=== PATIENT | male | born 1935 | race Caucasian/White ===

== ENCOUNTER → 2017-02-16 | Outpatient (REF) | payer MEDICARE, OTHER ==
[~2017-02-16] MED LIST: /ESOM40CA; /WARF25TA; ACET65TA; AZOP0.2S OU; CALC1TAB63 PO; COENZYME Q10; COMB0.2S OU; DULCOLAX; ELIQ5TAB PO; EPLE25TA PO; FERR325T69 PO; FLOM5CAP PO; GLIP2.5T2; GLUC500T; GLYB2.5T6; HYDR25TA6; LISI20TA5; MAGN1TAB25 PO; METO1TAB32 PO; OCCUVITE; OMEP40CA2 PO; PERC5TAB8; PRESCAP6 PO; ROSU10TA; ROSU10TA2 PO; SLOWTAB; THERGRAN; TORS20TA2 PO; VITAMIN D50000 UNT; XALA0.007 OU; [UNRECOGNIZED DRUG - OTHER]; xalatan
[2017-02-16 13:28] LABS: MEAN CORPUSCULAR HEMOGLOBIN 34.5 pg (27.0-33.0); MEAN CORPUSCULAR HGB CONC 34.6 g/dl (32.0-36.5); MEAN CORPUSCULAR VOLUME 99.7 fl (80.0-96.0); RED CELL DISTRIBUTION WIDTH 13.8 % (11.5-14.5)
[2017-02-16 14:14] LABS: ALBUMIN 3.8 GM/DL (3.2-5.2); ALBUMIN/GLOBULIN RATIO 1.23 (1.00-1.93); ALKALINE PHOSPHATASE 59 U/L (45-117); ALT/SGPT 32 U/L (12-78); ANION GAP 9 MEQ/L (8-16); AST/SGOT 22 U/L (15-37); BILIRUBIN,TOTAL 0.7 MG/DL (0.2-1.0); BLOOD UREA NITROGEN 20 MG/DL (7-18); CALCIUM LEVEL 8.4 MG/DL (8.8-10.2); CARBON DIOXIDE LEVEL 28 MEQ/L (21-32); CHLORIDE LEVEL 106 MEQ/L (98-107); CHOLESTEROL LEVEL 87 MG/DL (<200); CREATININE FOR GFR 1.23 MG/DL (0.70-1.30); GLOMERULAR FILTRATION RATE > 60.0 (>35); GLUCOSE, FASTING 186 MG/DL (83-110); POTASSIUM SERUM 4.1 MEQ/L (3.5-5.1); SODIUM LEVEL 143 MEQ/L (136-145); TOTAL PROTEIN 6.9 GM/DL (6.4-8.2); TRIGLYCERIDES LEVEL 161 MG/DL (<150)
== END ==
LOC: M LABDRAW1 11:32
PROVIDERS: ATTEND Internal Medicine
DX: Z85.46 Personal history of malignant neoplasm of prostate (principal); I10 Essential (primary) hypertension; E11.9 Type 2 diabetes mellitus without complications; E78.00 Pure hypercholesterolemia, unspecified; E04.1 Nontoxic single thyroid nodule

== ENCOUNTER 2017-05-02 08:01 | Day surgery (SDC) | payer MEDICARE ==
[~2017-05-02] VITALS: Ht 185.4 cm; Wt 104.3 kg
[~2017-05-02 08:01] MED LIST changes: +ACETAMINOPHEN 325 MG TAB PO PRN; +BSS with VANC/TOB/EPI for EYE CASES IR ONE; +CEFUROXIME 1MG/0.1ML INTRACAMERAL INJ As Ordered ONE; +CYCLOPENTOLATE 2% OPHTH SOLN 2ML BTL OD ONE; +HEALON DUET (HEALON 10MG/ML 0.55ML & HEALON ENDOCOAT 30MG/ML 0.85ML) As Ordered ONE; +LIDOCAINE 1% SDV 5 ML VIAL As Ordered ONE; +LIDOCAINE 3.5 % 1ML OPHTH TOPICAL GEL OU ONE; +OFLOXACIN 0.3 % (OCUFLOX) OPTH SOL 5ML OD ONE; +PHENYLEPHRINE 2.5% OPHTH SOL 2ML OD ONE; +POVIDONE-IODINE 5% OPHTH PREP SOL 30ML As Ordered ONE; +PROPARACAINE 0.5% OPHTH SOL 15ML OD PRN; +TROPICAMIDE 1% OPHTH SOLN 2ML OD ONE
[2017-05-02] MEDS ORDERED: LR 500 ML IV ONE (08:15)
[2017-05-02] MEDS ORDERED: LIDOCAINE 1% SDV 5 ML VIAL SC ONE (09:00)
[2017-05-02] MEDS ORDERED: MIDAZOLAM INJ 2 MG/2 ML VIAL (J2250) As Ordered ONE (09:39)
[2017-05-02] MEDS ORDERED: fentaNYL 100 MCG/2 ML INJECTION (J3010) As Ordered ONE (09:40)
[2017-05-02] MEDS ORDERED: HEALON DUET (HEALON 10MG/ML 0.55ML & HEALON ENDOCOAT 30MG/ML 0.85ML) As Ordered ONE (09:41)
[2017-05-02] MEDS ORDERED: ACETYLCHOLINE OPHTH SOLN 1% 2ML (MIOCHOL-E) As Ordered ONE (10:03)
[2017-05-02 10:40] VITALS: BP 155/73
[2017-05-02] MEDS ORDERED: TRIMETHOBENZAMIDE 300 MG CAP PO PRN (10:45)
[2017-05-02] MEDS ORDERED: AcetaZOLAMIDE 500 MG ER CAP PO ONE (10:45)
[2017-05-02] MEDS ORDERED: KETOROLAC 0.5% OPHTH SOLN OD ONE (10:45)
--- NOTE | 2017-05-02 13:42 | RO ---
DATE OF PROCEDURE: 05/02/2017 PREPROCEDURE DIAGNOSIS: Glaucoma, cataract of right eye. POSTPROCEDURE DIAGNOSIS: Glaucoma, cataract of right eye. PROCEDURE: Femtosecond laser and phacoemulsification of the intraocular lens with lens implantation. Intraocular lens power used was 20 Diopters. Endocyclophotocoagulation of the right eye. SURGEON: Meghan Huber MD INDUSTRIAL ORGANIZATIONAL PSYCHOLOGIST: None. ANESTHESIA: COMPLICATIONS: None. DESCRIPTION OF PROCEDURE: The patient was brought to the operating room and laid in supine position. The eye was prepped and draped for ophthalmic surgery and the patient was placed under the femtosecond laser. After proper suction was placed and patient interface was in good position. The ODT images were reviewed. Suction was activated and laser procedure was initiated. Capsulorrhexis lens fragmentation was done, followed by primary and secondary corneal incisions and arcuate corneal incisions. Suction was then placed and the patient was brought to the operating room in supine position. The eye was prepped and sterile fashion for ophthalmic surgery. Speculum was placed. Primary and secondary corneal incisions were opened. EndoCoat was injected into the anterior chamber. The patient's pupil, by this time, had constricted significantly and it was decided to place the Malyugin ring, but prior to that Healon was placed in the ciliary sulcus to elevate the iris from the capsulorrhexis and create a cleavage plane and the Malyugin ring, 7 mm was then placed without any entrapment of the capsule. Following which, phacoemulsification was done in divide and conquer method in the standard fashion and cortical material was then aspirated using an irrigation aspiration cannula. Healon was then placed into the capsular bag. Malyugin ring was then removed. Endocytophotocoagulation was then done with the help of the EndoProbe under the direct visualization on the video screen at 0.25 milliwatts for 280 degrees. At the end of the case, moxifloxacin was injected. Lid speculum was removed. The wound was hydrated. No leaks were noted. The patient was returned to the recovery room in stable condition.
== END 2017-05-02 11:00 | disposition home or self-care (01) ==
LOC: M SDC 08:01
PROVIDERS: ATTEND Ophthalmology
DX: H25.9 Unspecified age-related cataract (principal); H40.9 Unspecified glaucoma; I48.91 Unspecified atrial fibrillation; I10 Essential (primary) hypertension; E11.9 Type 2 diabetes mellitus without complications; Z92.3 Personal history of irradiation; N40.0 Benign prostatic hyperplasia without lower urinary tract symptoms; Z79.02 Long term (current) use of antithrombotics/antiplatelets; Z79.899 Other long term (current) drug therapy
CPT/HCPCS: 66711; 66984; J2250; J3010; V2632

== ENCOUNTER → 2017-06-15 | Outpatient (REF) | payer MEDICARE ==
[~2017-06-15] MED LIST changes: -ACETAMINOPHEN 325 MG TAB PO PRN; -BSS with VANC/TOB/EPI for EYE CASES IR ONE; -CEFUROXIME 1MG/0.1ML INTRACAMERAL INJ As Ordered ONE; -CYCLOPENTOLATE 2% OPHTH SOLN 2ML BTL OD ONE; -HEALON DUET (HEALON 10MG/ML 0.55ML & HEALON ENDOCOAT 30MG/ML 0.85ML) As Ordered ONE; -LIDOCAINE 1% SDV 5 ML VIAL As Ordered ONE; -LIDOCAINE 3.5 % 1ML OPHTH TOPICAL GEL OU ONE; -OFLOXACIN 0.3 % (OCUFLOX) OPTH SOL 5ML OD ONE; -PHENYLEPHRINE 2.5% OPHTH SOL 2ML OD ONE; -POVIDONE-IODINE 5% OPHTH PREP SOL 30ML As Ordered ONE; -PROPARACAINE 0.5% OPHTH SOL 15ML OD PRN; -TROPICAMIDE 1% OPHTH SOLN 2ML OD ONE
== END ==
LOC: M LABDRAW1 10:26
PROVIDERS: ATTEND Urology
DX: Z85.46 Personal history of malignant neoplasm of prostate (principal)

== ENCOUNTER → 2017-08-23 | Outpatient (REF) | payer MEDICARE ==
[2017-08-23 12:23] LABS: HEMATOCRIT 39.9 % (42.0-52.0); HEMOGLOBIN 13.5 g/dl (14.0-18.0); MEAN CORPUSCULAR HEMOGLOBIN 32.8 pg (27.0-33.0); MEAN CORPUSCULAR HGB CONC 33.8 g/dl (32.0-36.5); MEAN CORPUSCULAR VOLUME 97.1 fl (80.0-96.0); PLATELET COUNT, AUTOMATED 159 10^3/uL (150-450); RED BLOOD COUNT 4.11 10^6/uL (4.30-6.10); RED CELL DISTRIBUTION WIDTH 13.2 % (11.5-14.5); WHITE BLOOD COUNT 8.5 10^3/uL (4.0-10.0)
[2017-08-23 12:39] LABS: ALBUMIN 3.9 GM/DL (3.2-5.2); ALBUMIN/GLOBULIN RATIO 1.26 (1.00-1.93); ALKALINE PHOSPHATASE 62 U/L (45-117); ALT/SGPT 24 U/L (12-78); ANION GAP 7 MEQ/L (8-16); AST/SGOT 18 U/L (7-37); BILIRUBIN,TOTAL 0.8 MG/DL (0.2-1.0); BLOOD UREA NITROGEN 18 MG/DL (7-18); CALCIUM LEVEL 8.5 MG/DL (8.8-10.2); CARBON DIOXIDE LEVEL 30 MEQ/L (21-32); CHLORIDE LEVEL 104 MEQ/L (98-107); CHOLESTEROL LEVEL 93 MG/DL (<200); CHOLESTEROL RISK RATIO 2.657 (<5); CREATININE FOR GFR 1.18 MG/DL (0.70-1.30); GLOMERULAR FILTRATION RATE > 60.0 (>35); GLUCOSE, FASTING 212 MG/DL (83-110); HDL CHOLESTEROL 35 MG/DL (>40); LDL CHOLESTEROL 21.6 MG/DL (<100); MAGNESIUM LEVEL 1.9 MG/DL (1.8-2.4); NON-HDL-C 58 MG/DL; SODIUM LEVEL 141 MEQ/L (136-145); TRIGLYCERIDES LEVEL 182 MG/DL (<150)
[2017-08-23 13:07] LABS: CREATININE, URINE 39.1 MG/DL; MALB URINE SIEMENS 21.8 MG/L; MAU/CREAT RATIO 55.7 MCG/MG (0.0-30.0)
[2017-08-23 13:34] LABS: ESTIMATED AVERAGE GLUCOSE 169 MG/DL (60-110); HEMOGLOBIN A1c 7.5 %
== END ==
LOC: M LABDRAW1 10:06
DX: D64.9 Anemia, unspecified (principal); I10 Essential (primary) hypertension; E11.9 Type 2 diabetes mellitus without complications; E78.00 Pure hypercholesterolemia, unspecified
CPT/HCPCS: 83735

== ENCOUNTER 2017-09-25 07:33 | Day surgery (SDC) | payer MEDICARE ==
[2017-09-25] MEDS: BSS with VANC/TOB/EPI for EYE CASES IR (07:00)
[~2017-09-25 07:33] MED LIST changes: -/ESOM40CA; -/WARF25TA; -ACET65TA; +ACETAMINOPHEN 325 MG TAB PO; -AZOP0.2S OU; -CALC1TAB63 PO; -COENZYME Q10; -COMB0.2S OU; +CYCLOPENTOLATE 2% OPHTH SOLN 2ML BTL OS; -DULCOLAX; -ELIQ5TAB PO; -EPLE25TA PO; -FERR325T69 PO; -FLOM5CAP PO; -GLIP2.5T2; -GLUC500T; -GLYB2.5T6; -HYDR25TA6; +LIDOCAINE 3.5 % 1ML OPHTH TOPICAL GEL OU; -LISI20TA5; -MAGN1TAB25 PO; -METO1TAB32 PO; -OCCUVITE; +OFLOXACIN 0.3 % (OCUFLOX) OPTH SOL 5ML OS; -OMEP40CA2 PO; -PERC5TAB8; +PHENYLEPHRINE 2.5% OPHTH SOL 2ML OS; +PHENYLEPHRINE HCL 10 % OPHTH. SOL 5ML OS; -PRESCAP6 PO; +PROPARACAINE 0.5% OPHTH SOL 15ML OS; -ROSU10TA; -ROSU10TA2 PO; -SLOWTAB; -THERGRAN; -TORS20TA2 PO; +TROPICAMIDE 1% OPHTH SOLN 2ML OS; -VITAMIN D50000 UNT; -XALA0.007 OU; -[UNRECOGNIZED DRUG - OTHER]; -xalatan
[2017-09-25] MEDS ORDERED: fentaNYL 100 MCG/2 ML INJECTION (J3010) As Ordered (08:11)
[2017-09-25] MEDS ORDERED: MIDAZOLAM INJ 2 MG/2 ML VIAL (J2250) As Ordered (08:11)
[2017-09-25 08:35] LABS: BEDSIDE GLUCOSE 220 MG/DL (83-110)
[2017-09-25] MEDS: HEALON DUET (HEALON 10MG/ML 0.55ML & HEALON ENDOCOAT 30MG/ML 0.85ML) As Ordered (08:48)
[2017-09-25] MEDS: LIDOCAINE 1% SDV 5 ML VIAL As Ordered (08:48)
[2017-09-25] MEDS: POVIDONE-IODINE 5% OPHTH PREP SOL 30ML As Ordered (08:48)
[2017-09-25] MEDS: CEFUROXIME 1MG/0.1ML INTRACAMERAL INJ As Ordered (08:48)
[2017-09-25] MEDS: AcetaZOLAMIDE 500 MG ER CAP PO (09:30)
[2017-09-25] MEDS: KETOROLAC 0.5% OPHTH SOLN OS (09:30)
[2017-09-25] MEDS ORDERED: TRIMETHOBENZAMIDE 300 MG CAP PO (09:30)
== END 2017-09-25 09:53 | disposition home or self-care (01) ==
LOC: M SDC 07:33
DX: H25.12 Age-related nuclear cataract, left eye (principal); H57.03 Miosis; H40.9 Unspecified glaucoma; I48.91 Unspecified atrial fibrillation; I50.42 Chronic combined systolic (congestive) and diastolic (congestive) heart failure; I11.0 Hypertensive heart disease with heart failure; E78.00 Pure hypercholesterolemia, unspecified; E11.9 Type 2 diabetes mellitus without complications; Z87.891 Personal history of nicotine dependence; Z96.652 Presence of left artificial knee joint; Z72.3 Lack of physical exercise; Z85.51 Personal history of malignant neoplasm of bladder; N40.0 Benign prostatic hyperplasia without lower urinary tract symptoms; Z79.899 Other long term (current) drug therapy; Z85.46 Personal history of malignant neoplasm of prostate; Z86.010 Personal history of colon polyps; M19.90 Unspecified osteoarthritis, unspecified site; D64.9 Anemia, unspecified
CPT/HCPCS: 66982

== ENCOUNTER → 2018-05-14 | Outpatient (REF) | payer MEDICARE ==
[2018-05-14 15:49] LABS: APPEARANCE, URINE CLEAR (CLEAR); BACTERIA, URINE AUTO NEGATIVE (NEGATIVE); BILIRUBIN, URINE AUTO NEGATIVE (NEGATIVE); BLOOD, URINE BLOOD NEGATIVE (NEGATIVE); COLOR, URINE YELLOW (YELLOW); GLUCOSE, URINE (UA) AUTO 1+ mg/dL (NEGATIVE); KETONE, URINE AUTO NEGATIVE (NEGATIVE); LEUKOCYTE ESTERASE, URINE AUTO NEGATIVE (NEGATIVE); MUCUS, URINE SMALL (NEGATIVE); NITRITE, URINE AUTO NEGATIVE (NEGATIVE); PROTEIN, URINE AUTO NEGATIVE (NEGATIVE); RBC, URINE AUTO 0 /HPF (0-3); SPECIFIC GRAVITY URINE AUTO 1.013 (1.002-1.035); SQUAMOUS EPITHELIAL CELL UR AU 0 /HPF (0-6); UROBILINOGEN, URINE AUTO 0.2 mg/dL (0.0-2.0); WBC, URINE AUTO 0 /HPF (0-3)
[2018-05-14 16:03] LABS: ESTIMATED AVERAGE GLUCOSE 157 MG/DL (60-110); HEMOGLOBIN A1c 7.1 %
[2018-05-14 16:10] LABS: CREATININE, URINE 93.3 MG/DL; MALB URINE SIEMENS 26.4 MG/L
[2018-05-14 16:23] LABS: MAU/CREAT RATIO 28.3 MCG/MG (0.0-30.0)
[2018-05-14 16:34] LABS: ALBUMIN/GLOBULIN RATIO 1.25 (1.00-1.93); ALKALINE PHOSPHATASE 67 U/L (45-117); ALT/SGPT 21 U/L (12-78); ANION GAP 10 MEQ/L (8-16); AST/SGOT 18 U/L (7-37); BILIRUBIN,TOTAL 0.8 MG/DL (0.2-1.0); BLOOD UREA NITROGEN 20 MG/DL (7-18); CALCIUM LEVEL 8.8 MG/DL (8.8-10.2); CARBON DIOXIDE LEVEL 27 MEQ/L (21-32); CHLORIDE LEVEL 105 MEQ/L (98-107); CREATININE FOR GFR 1.16 MG/DL (0.70-1.30); GLOMERULAR FILTRATION RATE > 60.0 (>35); GLUCOSE, FASTING 101 MG/DL (70-100); MAGNESIUM LEVEL 2.3 MG/DL (1.8-2.4); POTASSIUM SERUM 4.6 MEQ/L (3.5-5.1); SODIUM LEVEL 142 MEQ/L (136-145); TOTAL PROTEIN 7.2 GM/DL (6.4-8.2)
== END ==
LOC: M LABDRAW1 11:51
DX: I10 Essential (primary) hypertension (principal); E11.9 Type 2 diabetes mellitus without complications; Z51.81 Encounter for therapeutic drug level monitoring; Z79.01 Long term (current) use of anticoagulants
CPT/HCPCS: 83735

== ENCOUNTER → 2018-05-14 | Outpatient (REF) | payer MEDICARE ==
[2018-05-14 15:51] LABS: INR 1.17; PROTHROMBIN TIME 15.1 SECONDS (12.1-14.4)
== END ==
LOC: M LABDRAW1 11:54
DX: Z51.81 Encounter for therapeutic drug level monitoring (principal); Z79.01 Long term (current) use of anticoagulants

== ENCOUNTER → 2018-06-07 | Outpatient (REF) | payer MEDICARE, OTHER ==
[2018-06-07 16:16] LABS: PROSTATIC SPECIFIC AG MONITOR 0.09 NG/ML (< 4.0)
== END ==
LOC: M LABDRAW1 15:46
DX: Z12.5 Encounter for screening for malignant neoplasm of prostate (principal)
CPT/HCPCS: 84153

== ENCOUNTER → 2018-12-30 | Outpatient (REF) | payer MEDICARE, OTHER ==
[~2018-12-30] MED LIST changes: +ACET65TA; -ACETAMINOPHEN 325 MG TAB PO; +AZOP0.2S OU; +CALC1TAB63 PO; +COENZYME Q10; +COMB0.2S OU; +COUM1TAB18; +CRES10TA32; -CYCLOPENTOLATE 2% OPHTH SOLN 2ML BTL OS; +DULCOLAX; +ELIQ5TAB PO; +EPLE25TA PO; +FERR325T69 PO; +FLOM0.4C39 PO; +GLIP2.5T2; +GLUC500T; +GLYB2.5T6; +HYDR25TA6; -LIDOCAINE 3.5 % 1ML OPHTH TOPICAL GEL OU; +LISI20TA5; +MAGN1TAB26 PO; +METO1TAB32 PO; +NEXI1CAP3; +OCCUVITE; -OFLOXACIN 0.3 % (OCUFLOX) OPTH SOL 5ML OS; +OMEP40CA2 PO; +PERC5TAB8; -PHENYLEPHRINE 2.5% OPHTH SOL 2ML OS; -PHENYLEPHRINE HCL 10 % OPHTH. SOL 5ML OS; +PRESCAP6 PO; -PROPARACAINE 0.5% OPHTH SOL 15ML OS; +ROSU10TA5 PO; +SLOWTAB; +THERGRAN; +TORS20TA2 PO; -TROPICAMIDE 1% OPHTH SOLN 2ML OS; +VITAMIN D50000 UNT; +XALA0.007 OU; +[UNRECOGNIZED DRUG - OTHER]; +xalatan
[2018-12-30 12:18] LABS: HEMOGLOBIN 13.7 g/dl (13.5-17.5); MEAN CORPUSCULAR HEMOGLOBIN 33.2 pg (27.0-33.0); MEAN CORPUSCULAR HGB CONC 33.4 g/dl (32.0-36.5); MEAN CORPUSCULAR VOLUME 99.3 fl (80.0-96.0); PLATELET COUNT, AUTOMATED 139 10^3/uL (150-450); RED BLOOD COUNT 4.13 10^6/uL (4.30-6.10); WHITE BLOOD COUNT 5.6 10^3/uL (4.0-10.0)
[2018-12-30 12:46] LABS: HEMOGLOBIN A1c 7.6 %
[2018-12-30 12:49] LABS: ALBUMIN 3.7 GM/DL (3.2-5.2); BILIRUBIN,TOTAL 0.9 MG/DL (0.2-1.0); CALCIUM LEVEL 8.6 MG/DL (8.8-10.2); CHOLESTEROL RISK RATIO 2.781 (<5); CREATININE FOR GFR 1.32 MG/DL (0.70-1.30); FREE T4 1.25 NG/DL (0.76-1.46); GLOMERULAR FILTRATION RATE 55.1 (>35); MAGNESIUM LEVEL 2.2 MG/DL (1.8-2.4); POTASSIUM SERUM 4.3 MEQ/L (3.5-5.1); THYROID STIMULATING HORMONE 0.708 uIU/ML (0.358-3.740); TOTAL PROTEIN 7.2 GM/DL (6.4-8.2)
[2018-12-30 13:05] LABS: CREATININE, URINE 23.3 MG/DL; MALB URINE SIEMENS 6.3 MG/L
== END ==
LOC: M LABDRAW1 11:32
PROVIDERS: ATTEND Internal Medicine
DX: I11.9 Hypertensive heart disease without heart failure (principal); Z85.46 Personal history of malignant neoplasm of prostate; E04.1 Nontoxic single thyroid nodule; E11.9 Type 2 diabetes mellitus without complications; E78.00 Pure hypercholesterolemia, unspecified

== ENCOUNTER → 2019-06-27 | Outpatient (REF) | payer MEDICARE, OTHER ==
[~2019-06-27] MED LIST changes: -OMEP40CA2 PO; +OMEP40CA97 PO; -ROSU10TA5 PO; +ROSU10TA6 PO
== END ==
LOC: M LABDRAW1 15:28
PROVIDERS: ATTEND Urology
DX: Z85.46 Personal history of malignant neoplasm of prostate (principal)

== ENCOUNTER → 2019-11-24 | Outpatient (REF) | payer MEDICARE, OTHER ==
[2019-11-24 11:03] LABS: CREATININE, URINE 68.3 MG/DL; MAU/CREAT RATIO 405.5 MCG/MG (0.0-30.0)
[2019-11-24 11:04] LABS: ALT/SGPT 22 U/L (12-78); BILIRUBIN,TOTAL 1.1 MG/DL (0.2-1.0); BLOOD UREA NITROGEN 27 MG/DL (7-18); CALCIUM LEVEL 9.4 MG/DL (8.8-10.2); CARBON DIOXIDE LEVEL 31 MEQ/L (21-32); CHLORIDE LEVEL 92 MEQ/L (98-107); CHOLESTEROL LEVEL 96 MG/DL (<200); CHOLESTEROL RISK RATIO 2.909 (<5); GLOMERULAR FILTRATION RATE 34.1 (>35); GLUCOSE, FASTING 473 MG/DL (70-100); HDL CHOLESTEROL 33 MG/DL (>40); MAGNESIUM LEVEL 2.8 MG/DL (1.8-2.4); NON-HDL-C 63 MG/DL; POTASSIUM SERUM 4.4 MEQ/L (3.5-5.1); SODIUM LEVEL 129 MEQ/L (136-145); TOTAL PROTEIN 7.5 GM/DL (6.4-8.2); TRIGLYCERIDES LEVEL 338 MG/DL (<150)
[2019-11-24 11:07] LABS: HEMOGLOBIN A1c 11.7 %
== END ==
LOC: M LABDRAW1 08:07
PROVIDERS: ATTEND Internal Medicine
DX: I11.9 Hypertensive heart disease without heart failure (principal); E78.2 Mixed hyperlipidemia; E11.9 Type 2 diabetes mellitus without complications

== ENCOUNTER → 2020-01-23 | Outpatient (CLI) | payer MEDICARE, OTHER, BC ==
[2020-01-23 14:33] LABS: BLOOD UREA NITROGEN 16 MG/DL (7-18); CALCIUM LEVEL 8.5 MG/DL (8.8-10.2); CARBON DIOXIDE LEVEL 28 MEQ/L (21-32); CHLORIDE LEVEL 107 MEQ/L (98-107); CREATININE FOR GFR 1.15 MG/DL (0.70-1.30); GLOMERULAR FILTRATION RATE > 60.0 (>35); GLUCOSE, FASTING 96 MG/DL (70-100); POTASSIUM SERUM 4.4 MEQ/L (3.5-5.1); SODIUM LEVEL 142 MEQ/L (136-145)
== END ==
LOC: M PLALAB 10:27
PROVIDERS: ATTEND Internal Medicine Cardiovascular Disease
DX: E87.1 Hypo-osmolality and hyponatremia (principal)

== ENCOUNTER → 2020-03-31 | Outpatient (REF) | payer MEDICARE, BC ==
[2020-05-03 11:38] LABS: HEMATOCRIT 43.8 % (42.0-52.0); HEMOGLOBIN 14.6 g/dl (13.5-17.5); MEAN CORPUSCULAR HEMOGLOBIN 33.6 pg (27.0-33.0); MEAN CORPUSCULAR HGB CONC 33.3 g/dl (32.0-36.5); MEAN CORPUSCULAR VOLUME 100.7 fl (80.0-96.0); PLATELET COUNT, AUTOMATED 155 10^3/uL (150-450); RED BLOOD COUNT 4.35 10^6/uL (4.30-6.10); WHITE BLOOD COUNT 6.8 10^3/uL (4.0-10.0)
[2020-05-16 10:56] LABS: ALBUMIN 3.9 GM/DL (3.2-5.2); BILIRUBIN,TOTAL 0.8 MG/DL (0.2-1.0); CALCIUM LEVEL 8.4 MG/DL (8.8-10.2); CHOLESTEROL RISK RATIO 2.806 (<5); CREATININE FOR GFR 1.54 MG/DL (0.70-1.30); HEMOGLOBIN A1c 6.8 %; MAGNESIUM LEVEL 2.4 MG/DL (1.8-2.4); POTASSIUM SERUM 4.1 MEQ/L (3.5-5.1); TOTAL PROTEIN 7.3 GM/DL (6.4-8.2)
== END ==
LOC: M SFHCPLAZ 11:13
PROVIDERS: ATTEND Internal Medicine
DX: E11.9 Type 2 diabetes mellitus without complications (principal); I11.9 Hypertensive heart disease without heart failure; E78.2 Mixed hyperlipidemia; N18.3 Chronic kidney disease, stage 3 (moderate)

== ENCOUNTER → 2020-05-28 | Outpatient (CLI) | payer MEDICARE, OTHER, BC ==
[2020-05-28 10:52] LABS: CALCIUM LEVEL 8.6 MG/DL (8.8-10.2); CREATININE FOR GFR 1.42 MG/DL (0.70-1.30); GLOMERULAR FILTRATION RATE 50.6 (>35); POTASSIUM SERUM 3.7 MEQ/L (3.5-5.1)
== END ==
LOC: M PLALAB 08:04
PROVIDERS: ATTEND Internal Medicine Cardiovascular Disease
DX: I50.32 Chronic diastolic (congestive) heart failure (principal); Z79.01 Long term (current) use of anticoagulants

== ENCOUNTER → 2020-06-28 | Outpatient (CLI) | payer MEDICARE, OTHER, BC | LOC: M PLALAB 11:54 | PROVIDERS: ATTEND Urology | DX: Z85.46 Personal history of malignant neoplasm of prostate (principal) ==

== ENCOUNTER → 2020-08-19 | Outpatient (CLI) | payer BC, MEDICARE, OTHER | LOC: M LABSMTC 09:53 | PROVIDERS: ATTEND Family Medicine | DX: Z20.828 Contact with and (suspected) exposure to other viral communicable diseases (principal) ==

== ENCOUNTER → 2020-09-03 | Outpatient (REF) | payer MEDICARE, BC ==
[2020-09-03 11:01] LABS: BASO % 0.3 % (0.0-1.0); EOS % 0.5 % (0.0-3.0); HEMATOCRIT 47.1 % (42.0-52.0); HEMOGLOBIN 15.4 g/dl (13.5-17.5); LYMPH # 1.5 10^3/uL (1.5-5.0); LYMPH % 26.4 % (24.0-44.0); MEAN CORPUSCULAR HGB CONC 32.7 g/dl (32.0-36.5); MEAN CORPUSCULAR VOLUME 100.9 fl (80.0-96.0); MONO # 0.6 10^3/uL (0.0-0.8); NEUTROPHILS # 3.5 10^3/uL (1.5-8.5); NEUTROPHILS % 61.6 % (36.0-66.0); PLATELET COUNT, AUTOMATED 154 10^3/uL (150-450); RED BLOOD COUNT 4.67 10^6/uL (4.30-6.10); WHITE BLOOD COUNT 5.7 10^3/uL (4.0-10.0)
[2020-09-03 11:47] LABS: ALBUMIN 3.7 GM/DL (3.2-5.2); ALT/SGPT 28 U/L (12-78); BILIRUBIN,TOTAL 0.9 MG/DL (0.2-1.0); BLOOD UREA NITROGEN 25 MG/DL (7-18); CALCIUM LEVEL 8.6 MG/DL (8.8-10.2); CARBON DIOXIDE LEVEL 29 MEQ/L (21-32); CHLORIDE LEVEL 102 MEQ/L (98-107); CHOLESTEROL LEVEL 82 MG/DL (<200); CHOLESTEROL RISK RATIO 2.484 (<5); CREATININE FOR GFR 1.64 MG/DL (0.70-1.30); GLOMERULAR FILTRATION RATE 42.7 (>35); GLUCOSE, FASTING 230 MG/DL (70-100); HDL CHOLESTEROL 33 MG/DL (>40); LDL CHOLESTEROL 24 MG/DL (<100); MAGNESIUM LEVEL 2.4 MG/DL (1.8-2.4); NON-HDL-C 49 MG/DL; POTASSIUM SERUM 4.8 MEQ/L (3.5-5.1); SODIUM LEVEL 138 MEQ/L (136-145); THYROID STIMULATING HORMONE 0.554 uIU/ML (0.358-3.740); TOTAL PROTEIN 6.8 GM/DL (6.4-8.2); TRIGLYCERIDES LEVEL 123 MG/DL (<150)
[2020-09-03 11:50] LABS: CREATININE, URINE 20.2 MG/DL; MALB URINE SIEMENS < 5.0 MG/L; MAU/CREAT RATIO 24.7 MCG/MG (0.0-30.0)
[2020-09-03 11:55] LABS: PTH INTACT 178.5 PG/ML (18.5-88.0)
== END ==
LOC: M PLALAB 08:07
PROVIDERS: ATTEND Internal Medicine
DX: N18.30 Chronic kidney disease, stage 3 unspecified (principal); I11.9 Hypertensive heart disease without heart failure; E11.9 Type 2 diabetes mellitus without complications; E78.2 Mixed hyperlipidemia; E04.1 Nontoxic single thyroid nodule; Z11.59 Encounter for screening for other viral diseases
CPT/HCPCS: 36415; 80053; 80061; 82043; 83036; 83735; 83970; 84443; 85025; G0472

== ENCOUNTER → 2021-02-11 | Outpatient (REF) | payer MEDICARE, BC ==
[~2021-02-11] MED LIST changes: +OMEP40CA4 PO; -OMEP40CA97 PO
[2021-02-11 10:52] LABS: BASO % 0.3 % (0.0-1.0); EOS % 0.7 % (0.0-3.0); HEMATOCRIT 46.4 % (42.0-52.0); HEMOGLOBIN 15.3 g/dl (13.5-17.5); LYMPH # 1.4 10^3/uL (1.5-5.0); LYMPH % 23.7 % (24.0-44.0); MEAN CORPUSCULAR HEMOGLOBIN 32.9 pg (27.0-33.0); MEAN CORPUSCULAR VOLUME 99.8 fl (80.0-96.0); MONO # 0.6 10^3/uL (0.0-0.8); MONO % 9.9 % (2.0-8.0); NEUTROPHILS # 3.9 10^3/uL (1.5-8.5); NEUTROPHILS % 65.2 % (36.0-66.0); PLATELET COUNT, AUTOMATED 123 10^3/uL (150-450); RED BLOOD COUNT 4.65 10^6/uL (4.30-6.10); WHITE BLOOD COUNT 5.9 10^3/uL (4.0-10.0)
[2021-02-11 11:17] LABS: ALBUMIN 3.6 GM/DL (3.2-5.2); BILIRUBIN,TOTAL 0.9 MG/DL (0.2-1.0); CALCIUM LEVEL 8.4 MG/DL (8.8-10.2); CREATININE FOR GFR 1.41 MG/DL (0.70-1.30); GLOMERULAR FILTRATION RATE 50.9 (>35); MAGNESIUM LEVEL 2.5 MG/DL (1.8-2.4); TOTAL PROTEIN 6.8 GM/DL (6.4-8.2)
[2021-02-11 11:23] LABS: PTH INTACT 150.9 PG/ML (18.5-88.0)
[2021-02-11 11:46] LABS: HEMOGLOBIN A1c 7.3 %
[2021-02-15 10:39] LABS: PROSTATIC SPECIFIC AG MONITOR 0.05 NG/ML (< 4.00)
== END ==
LOC: M SFHCPLAZ 07:52
PROVIDERS: ATTEND Internal Medicine
DX: I11.9 Hypertensive heart disease without heart failure (principal); E11.9 Type 2 diabetes mellitus without complications; D64.9 Anemia, unspecified; N18.32 Chronic kidney disease, stage 3b; Z85.46 Personal history of malignant neoplasm of prostate

== ENCOUNTER → 2021-07-01 | Outpatient (CLI) | payer MEDICARE, BC | LOC: M PLALAB 13:57 | PROVIDERS: ATTEND Urology | DX: Z85.46 Personal history of malignant neoplasm of prostate (principal) | CPT/HCPCS: 36415; G0103 ==

== ENCOUNTER → 2021-07-01 | Outpatient (CLI) | payer MEDICARE, BC ==
[2021-07-01 16:00] LABS: BASO % 0.4 % (0.0-1.0); EOS # 0.1 10^3/uL (0.0-0.5); EOS % 0.9 % (0.0-3.0); HEMATOCRIT 45.9 % (42.0-52.0); HEMOGLOBIN 15.4 g/dl (13.5-17.5); LYMPH # 1.8 10^3/uL (1.5-5.0); LYMPH % 26.5 % (24.0-44.0); MEAN CORPUSCULAR HEMOGLOBIN 33.7 pg (27.0-33.0); MEAN CORPUSCULAR HGB CONC 33.6 g/dl (32.0-36.5); MEAN CORPUSCULAR VOLUME 100.4 fl (80.0-96.0); MONO # 0.8 10^3/uL (0.0-0.8); MONO % 11.3 % (2.0-8.0); NEUTROPHILS # 4.1 10^3/uL (1.5-8.5); NEUTROPHILS % 60.6 % (36.0-66.0); PLATELET COUNT, AUTOMATED 147 10^3/uL (150-450); RED BLOOD COUNT 4.57 10^6/uL (4.30-6.10); WHITE BLOOD COUNT 6.8 10^3/uL (4.0-10.0)
[2021-07-01 16:24] LABS: ALBUMIN 3.6 GM/DL (3.2-5.2); CALCIUM LEVEL 8.6 MG/DL (8.8-10.2); CHOLESTEROL RISK RATIO 2.5 (<5); CREATININE FOR GFR 1.52 MG/DL (0.70-1.30); GLOMERULAR FILTRATION RATE 46.5 (>35); MAGNESIUM LEVEL 2.6 MG/DL (1.8-2.4); POTASSIUM SERUM 4.4 MEQ/L (3.5-5.1); PROSTATIC SPECIFIC AG MONITOR 0.05 NG/ML (< 4.00); TOTAL PROTEIN 6.9 GM/DL (6.4-8.2)
[2021-07-01 16:32] LABS: CREATININE, URINE 41.8 MG/DL; MALB URINE SIEMENS 16.4 MG/L; MAU/CREAT RATIO 39.2 MCG/MG (0.0-30.0)
[2021-07-01 16:34] LABS: PTH INTACT 140.8 PG/ML (18.5-88.0)
== END ==
LOC: M PLALAB 14:00
PROVIDERS: ATTEND Internal Medicine
DX: Z85.46 Personal history of malignant neoplasm of prostate (principal); I13.0 Hypertensive heart and chronic kidney disease with heart failure and stage 1 through stage 4 chronic kidney disease, or unspecified chronic kidney disease; I50.9 Heart failure, unspecified; N18.32 Chronic kidney disease, stage 3b; E11.9 Type 2 diabetes mellitus without complications; E78.2 Mixed hyperlipidemia; K21.9 Gastro-esophageal reflux disease without esophagitis
CPT/HCPCS: 36415; 80053; 80061; 82043; 83735; 83970; 84153; 85025; G0103

== ENCOUNTER → 2021-07-18 | Outpatient (REF) | payer MEDICARE, BC | LOC: M SFHCPLAZ 15:10 | PROVIDERS: ATTEND Internal Medicine | DX: E11.9 Type 2 diabetes mellitus without complications (principal) ==

== ENCOUNTER → 2021-07-18 | Outpatient (CLI) | payer MEDICARE, BC ==
[2021-07-18 18:06] LABS: HEMOGLOBIN A1c 6.8 %
== END ==
LOC: M PLALAB 15:31
PROVIDERS: ATTEND Internal Medicine
DX: E11.9 Type 2 diabetes mellitus without complications (principal)
CPT/HCPCS: 36415; 83036; 90682; G0008; G0463

== ENCOUNTER → 2021-12-29 | Outpatient (CLI) | payer BC, MEDICARE ==
[2021-12-29 13:36] LABS: BASO % 0.4 % (0.0-1.0); EOS % 0.5 % (0.0-3.0); HEMATOCRIT 45.4 % (42.0-52.0); HEMOGLOBIN 15.4 g/dl (13.5-17.5); LYMPH # 1.7 10^3/uL (1.5-5.0); LYMPH % 21.6 % (24.0-44.0); MEAN CORPUSCULAR HEMOGLOBIN 34.1 pg (27.0-33.0); MEAN CORPUSCULAR HGB CONC 33.9 g/dl (32.0-36.5); MEAN CORPUSCULAR VOLUME 100.4 fl (80.0-96.0); MONO # 0.7 10^3/uL (0.0-0.8); MONO % 9.3 % (2.0-8.0); NEUTROPHILS # 5.2 10^3/uL (1.5-8.5); NEUTROPHILS % 67.8 % (36.0-66.0); PLATELET COUNT, AUTOMATED 158 10^3/uL (150-450); RED BLOOD COUNT 4.52 10^6/uL (4.30-6.10); WHITE BLOOD COUNT 7.7 10^3/uL (4.0-10.0)
[2021-12-29 13:52] LABS: HEMOGLOBIN A1c 6.9 %
[2021-12-29 14:10] LABS: ALBUMIN 3.6 GM/DL (3.2-5.2); BILIRUBIN,TOTAL 0.7 MG/DL (0.2-1.0); CALCIUM LEVEL 8.5 MG/DL (8.8-10.2); CHOLESTEROL RISK RATIO 2.8 (<5); CREATININE FOR GFR 1.43 MG/DL (0.70-1.30); CREATININE, URINE 42.6 MG/DL; GLOMERULAR FILTRATION RATE 49.9 (>35); MALB URINE SIEMENS 6.7 MG/L; MAU/CREAT RATIO 15.7 MCG/MG (0.0-30.0); POTASSIUM SERUM 4.5 MEQ/L (3.5-5.1); PTH INTACT 120.1 PG/ML (18.5-88.0); TOTAL PROTEIN 6.9 GM/DL (6.4-8.2)
== END ==
LOC: M PLALAB 09:27
PROVIDERS: ATTEND Internal Medicine
DX: I11.9 Hypertensive heart disease without heart failure (principal); E11.9 Type 2 diabetes mellitus without complications; N18.32 Chronic kidney disease, stage 3b; E78.2 Mixed hyperlipidemia; Z85.46 Personal history of malignant neoplasm of prostate

== ENCOUNTER → 2022-07-05 | Outpatient (CLI) | payer MEDICARE, BC ==
[~2022-07-05] MED LIST changes: +ASPI-551 PO; +FARX1TAB3 PO; +LANTINJ4 SQ; +METF-838 PO
[2022-07-05 10:19] LABS: HEMATOCRIT 43.4 % (42.0-52.0); HEMOGLOBIN 14.1 g/dl (13.5-17.5); MEAN CORPUSCULAR HEMOGLOBIN 33.1 pg (27.0-33.0); MEAN CORPUSCULAR HGB CONC 32.5 g/dl (32.0-36.5); MEAN CORPUSCULAR VOLUME 101.9 fl (80.0-96.0); PLATELET COUNT, AUTOMATED 127 10^3/uL (150-450); RED BLOOD COUNT 4.26 10^6/uL (4.30-6.10); WHITE BLOOD COUNT 7.7 10^3/uL (4.0-10.0)
[2022-07-05 11:18] LABS: ALBUMIN 3.6 G/DL (3.2-5.2); BILIRUBIN,TOTAL 1.8 MG/DL (0.3-1.2); C REACTIVE PROTEIN QUANTITATIV 1.2 MG/DL (<1.0); CALCIUM LEVEL 8.3 MG/DL (8.3-10.6); CHOLESTEROL RISK RATIO 2.75 (<5); CREATININE FOR GFR 1.41 MG/DL (0.70-1.30); FREE T4 1.37 NG/DL (0.89-1.76); GLOMERULAR FILTRATION RATE 50.6 (>35); HDL CHOLESTEROL 24.7 MG/DL (>40); LDL CHOLESTEROL 24.1 MG/DL (<100); PROSTATIC SPECIFIC AG MONITOR 0.05 NG/ML (< 4.00); THYROID STIMULATING HORMONE 1.084 uIU/ML (0.55-4.78); TOTAL 25(OH) VITAMIN D 35.6 NG/ML (20.0-100.0); TOTAL PROTEIN 6.5 G/DL (5.7-8.2)
[2022-07-05 12:32] LABS: HEMOGLOBIN A1c 6.8 % (4.0-6.0)
== END ==
LOC: M PLALAB 07:38
PROVIDERS: ATTEND Internal Medicine Hematology
DX: E78.2 Mixed hyperlipidemia (principal); Z85.46 Personal history of malignant neoplasm of prostate; Z79.899 Other long term (current) drug therapy

== ENCOUNTER → 2022-07-18 | Outpatient (CLI) | payer MEDICARE, BC ==
[2022-07-18 15:30] LABS: PROSTATIC SPECIFIC AG MONITOR 0.05 NG/ML (< 4.00)
[2022-07-18 15:32] LABS: BILIRUBIN,DIRECT 0.7 MG/DL (<0.4)
[2022-07-18 15:33] LABS: BILIRUBIN,TOTAL 1.6 MG/DL (0.3-1.2)
== END ==
LOC: M PLALAB 11:24
PROVIDERS: ATTEND Internal Medicine Hematology
DX: E80.6 Other disorders of bilirubin metabolism (principal); R97.20 Elevated prostate specific antigen [PSA]

== ENCOUNTER → 2022-08-21 | Outpatient (CLI) | payer MEDICARE, BC ==
[~2022-08-21] MED LIST changes: +TORS20TA2
== END ==
LOC: M LABSMTC 10:32
PROVIDERS: ATTEND Anesthesiology
DX: Z01.818 Encounter for other preprocedural examination (principal)

== ENCOUNTER 2022-08-25 11:49 | Day surgery (SDC) | payer MEDICARE, BC ==
[~2022-08-25] VITALS: Ht 185.4 cm; Wt 98.3 kg
[2022-08-25] MEDS ORDERED: propofoL 200 MG/20 ML VIAL As Ordered ONE (12:38)
[2022-08-25] MEDS ORDERED: LIDOCAINE 2% 100MG/5ML SDV (FOR ANES.) As Ordered ONE (12:38)
[2022-08-25] MEDS ORDERED: CETACAINE SPRAY 5GM As Ordered ONE (14:37)
[2022-08-25] MEDS ORDERED: MIDAZOLAM INJ 2MG/2ML VIAL As Ordered ONE (14:45)
[2022-08-25] MEDS ORDERED: ONDANSETRON 4MG 2ML VIAL As Ordered ONE (15:02)
[2022-08-25 15:50] VITALS: BP 132/68
== END 2022-08-25 16:02 | disposition home or self-care (01) ==
LOC: M OPP 11:49
PROVIDERS: ATTEND Internal Medicine Cardiovascular Disease
DX: Z95.818 Presence of other cardiac implants and grafts (principal); I48.21 Permanent atrial fibrillation; I10 Essential (primary) hypertension; E78.5 Hyperlipidemia, unspecified; E11.9 Type 2 diabetes mellitus without complications; K21.9 Gastro-esophageal reflux disease without esophagitis; M19.90 Unspecified osteoarthritis, unspecified site; Z85.46 Personal history of malignant neoplasm of prostate; Z92.3 Personal history of irradiation; Z86.73 Personal history of transient ischemic attack (TIA), and cerebral infarction without residual deficits; Z96.652 Presence of left artificial knee joint; Z79.01 Long term (current) use of anticoagulants; Z79.4 Long term (current) use of insulin; Z79.82 Long term (current) use of aspirin; Z79.84 Long term (current) use of oral hypoglycemic drugs; Z79.899 Other long term (current) drug therapy
CPT/HCPCS: 93312; 93320; 93325; J2250; J2405

== ENCOUNTER → 2023-01-23 | Outpatient (CLI) | payer MEDICARE, BC ==
[2023-01-23 11:07] LABS: ALBUMIN 3.8 G/DL (3.2-5.2); CALCIUM LEVEL 8.8 MG/DL (8.3-10.6); CREATININE FOR GFR 1.32 MG/DL (0.70-1.30); GLOMERULAR FILTRATION RATE 54.6 (>35); PHOSPHORUS LEVEL 4.6 MG/DL (2.4-5.1); POTASSIUM SERUM 3.5 MMOL/L (3.5-5.1)
== END ==
LOC: M PLALAB 08:30
PROVIDERS: ATTEND Internal Medicine Cardiovascular Disease
DX: I50.32 Chronic diastolic (congestive) heart failure (principal)

== ENCOUNTER → 2023-01-23 | Outpatient (CLI) | payer MEDICARE, BC ==
[2023-01-23 11:07] LABS: C REACTIVE PROTEIN QUANTITATIV < 0.40 MG/DL (<1.0)
[2023-01-23 11:08] LABS: HEMATOCRIT 45.8 % (42.0-52.0); HEMOGLOBIN 15.2 g/dl (13.5-17.5); MEAN CORPUSCULAR HEMOGLOBIN 32.9 pg (27.0-33.0); MEAN CORPUSCULAR HGB CONC 33.2 g/dl (32.0-36.5); MEAN CORPUSCULAR VOLUME 99.1 fl (80.0-96.0); PLATELET COUNT, AUTOMATED 130 10^3/uL (150-450); RED BLOOD COUNT 4.62 10^6/uL (4.30-6.10); WHITE BLOOD COUNT 6.1 10^3/uL (4.0-10.0)
[2023-01-23 11:09] LABS: ALBUMIN 3.8 G/DL (3.2-5.2); ALKALINE PHOSPHATASE 82 U/L (46-116); ALT/SGPT 28 U/L (7.0-40); AST/SGOT 17 U/L (<34); BILIRUBIN,TOTAL 1.2 MG/DL (0.3-1.2); BLOOD UREA NITROGEN 24 MG/DL (9-23); CALCIUM LEVEL 8.9 MG/DL (8.3-10.6); CARBON DIOXIDE LEVEL 28 MMOL/L (20-31); CHLORIDE LEVEL 106 MMOL/L (98-107); CHOLESTEROL LEVEL 84 MG/DL (<200); CHOLESTEROL RISK RATIO 2.63 (<5); CREATININE FOR GFR 1.36 MG/DL (0.70-1.30); GLOMERULAR FILTRATION RATE 52.8 (>35); GLUCOSE, FASTING 123 MG/DL (74-106); HDL CHOLESTEROL 31.9 MG/DL (>40); LDL CHOLESTEROL 30.7 MG/DL (<100); NON-HDL-C 52.1 MG/DL; POTASSIUM SERUM 3.5 MMOL/L (3.5-5.1); SODIUM LEVEL 141 MMOL/L (136-145); TOTAL PROTEIN 6.9 G/DL (5.7-8.2); TRIGLYCERIDES LEVEL 107 MG/DL (<150)
[2023-01-23 11:10] LABS: FREE T4 1.22 NG/DL (0.89-1.76); VITAMIN B12 LEVEL 641 PG/ML (211-911)
[2023-01-23 11:11] LABS: THYROID STIMULATING HORMONE 1.229 uIU/ML (0.55-4.78); TOTAL 25(OH) VITAMIN D 34.1 NG/ML (20.0-100.0)
[2023-01-23 11:26] LABS: HEMOGLOBIN A1c 6.6 % (4.0-6.0)
[2023-01-23 11:40] LABS: CREATININE, URINE 90.4 MG/DL; MAU/CREAT RATIO 61.9 MCG/MG (0.0-30.0)
== END ==
LOC: M PLALAB 08:33
PROVIDERS: ATTEND Internal Medicine Hematology
DX: E11.9 Type 2 diabetes mellitus without complications (principal); I50.32 Chronic diastolic (congestive) heart failure; Z85.46 Personal history of malignant neoplasm of prostate; Z79.899 Other long term (current) drug therapy
CPT/HCPCS: 36415; 80053; 80061; 80069; 82043; 82306; 82607; 83036; 83880; 84439; 84443; 85027; 86140; G0103

== ENCOUNTER → 2023-08-02 | Outpatient (CLI) | payer MEDICARE, BC ==
[2023-08-02 10:31] LABS: C REACTIVE PROTEIN QUANTITATIV < 0.40 MG/DL (<1.0); HEMATOCRIT 45.3 % (42.0-52.0); HEMOGLOBIN 15.1 g/dl (13.5-17.5); MEAN CORPUSCULAR HGB CONC 33.3 g/dl (32.0-36.5); MEAN CORPUSCULAR VOLUME 98.9 fl (80.0-96.0); PLATELET COUNT, AUTOMATED 136 10^3/uL (150-450); RED BLOOD COUNT 4.58 10^6/uL (4.30-6.10); WHITE BLOOD COUNT 5.9 10^3/uL (4.0-10.0)
[2023-08-02 10:32] LABS: ALBUMIN 3.6 G/DL (3.2-5.2); ALKALINE PHOSPHATASE 68 U/L (46-116); ALT/SGPT 22 U/L (7.0-40); AST/SGOT 20 U/L (<34); BILIRUBIN,TOTAL 1.1 MG/DL (0.3-1.2); BLOOD UREA NITROGEN 27 MG/DL (9-23); CALCIUM LEVEL 8.4 MG/DL (8.3-10.6); CARBON DIOXIDE LEVEL 28 MMOL/L (20-31); CHLORIDE LEVEL 106 MMOL/L (98-107); CHOLESTEROL LEVEL 156 MG/DL (<200); CHOLESTEROL RISK RATIO 4.85 (<5); CREATININE FOR GFR 1.46 MG/DL (0.70-1.30); GLOMERULAR FILTRATION RATE 48.5 (>35); GLUCOSE, FASTING 143 MG/DL (74-106); HDL CHOLESTEROL 32.1 MG/DL (>40); LDL CHOLESTEROL 100.3 MG/DL (<100); NON-HDL-C 123.9 MG/DL; POTASSIUM SERUM 4.3 MMOL/L (3.5-5.1); SODIUM LEVEL 142 MMOL/L (136-145); TOTAL PROTEIN 6.5 G/DL (5.7-8.2); TRIGLYCERIDES LEVEL 118 MG/DL (<150)
[2023-08-02 10:33] LABS: VITAMIN B12 LEVEL 781 PG/ML (211-911)
[2023-08-02 10:34] LABS: FREE T4 1.25 NG/DL (0.89-1.76); THYROID STIMULATING HORMONE 1.207 uIU/ML (0.55-4.78); TOTAL 25(OH) VITAMIN D 32.5 NG/ML (20.0-100.0)
[2023-08-02 11:09] LABS: CREATININE, URINE 38.7 MG/DL; MAU/CREAT RATIO 7.7 MCG/MG (0.0-30.0)
[2023-08-02 11:11] LABS: HEMOGLOBIN A1c 6.1 % (4.0-6.0)
== END ==
LOC: M PLALAB 08:01
PROVIDERS: ATTEND Internal Medicine Hematology
DX: E11.9 Type 2 diabetes mellitus without complications (principal); Z12.5 Encounter for screening for malignant neoplasm of prostate; Z79.899 Other long term (current) drug therapy; Z85.46 Personal history of malignant neoplasm of prostate

== ENCOUNTER → 2024-02-15 | Outpatient (CLI) | payer MEDICARE ==
[~2024-02-15] MED LIST changes: -EPLE25TA PO; +EPLE25TA2 PO; -ROSU10TA6 PO; +ROSU10TA61 PO
[2024-02-15 17:48] LABS: CREATININE, URINE 111.2 MG/DL; MAU/CREAT RATIO 4.4 MCG/MG (0.0-30.0)
[2024-02-15 17:51] LABS: HEMOGLOBIN A1c 6.1 % (4.0-6.0)
[2024-02-15 17:52] LABS: HEMATOCRIT 44.2 % (42.0-52.0); HEMOGLOBIN 14.9 g/dl (13.5-17.5); MEAN CORPUSCULAR HEMOGLOBIN 33.8 pg (27.0-33.0); MEAN CORPUSCULAR HGB CONC 33.7 g/dl (32.0-36.5); MEAN CORPUSCULAR VOLUME 100.2 fl (80.0-96.0); PLATELET COUNT, AUTOMATED 162 10^3/uL (150-450); RED BLOOD COUNT 4.41 10^6/uL (4.30-6.10); WHITE BLOOD COUNT 7.7 10^3/uL (4.0-10.0)
[2024-02-15 17:59] LABS: C REACTIVE PROTEIN QUANTITATIV < 0.40 MG/DL (<1.0)
[2024-02-15 18:04] LABS: ALBUMIN 3.5 G/DL (3.2-5.2); ALKALINE PHOSPHATASE 84 U/L (46-116); ALT/SGPT 24 U/L (7.0-40); AST/SGOT 16 U/L (<34); BILIRUBIN,TOTAL 0.9 MG/DL (0.3-1.2); BLOOD UREA NITROGEN 22 MG/DL (9-23); CALCIUM LEVEL 8.6 MG/DL (8.3-10.6); CARBON DIOXIDE LEVEL 28 MMOL/L (20-31); CHLORIDE LEVEL 105 MMOL/L (98-107); CHOLESTEROL LEVEL 141 MG/DL (<200); CHOLESTEROL RISK RATIO 5.07 (<5); CREATININE FOR GFR 1.54 MG/DL (0.70-1.30); FREE T4 1.21 NG/DL (0.89-1.76); GLOMERULAR FILTRATION RATE 45.6 (>35); GLUCOSE, FASTING 125 MG/DL (74-106); HDL CHOLESTEROL 27.8 MG/DL (>40); NON-HDL-C 113.2 MG/DL; POTASSIUM SERUM 4.3 MMOL/L (3.5-5.1); SODIUM LEVEL 140 MMOL/L (136-145); THYROID STIMULATING HORMONE 0.833 uIU/ML (0.55-4.78); TOTAL 25(OH) VITAMIN D 33.6 NG/ML (20.0-100.0); TOTAL PROTEIN 6.6 G/DL (5.7-8.2); TRIGLYCERIDES LEVEL 416 MG/DL (<150); VITAMIN B12 LEVEL 760 PG/ML (211-911)
== END ==
LOC: M PLALAB 15:08
PROVIDERS: ATTEND Internal Medicine Hematology
DX: I11.9 Hypertensive heart disease without heart failure (principal); Z79.899 Other long term (current) drug therapy

== ENCOUNTER → 2024-05-16 | Outpatient (CLI) | payer MEDICARE, BC | LOC: M WUC 12:28 | PROVIDERS: ATTEND Physician Assistant | DX: R05.9 Cough, unspecified (principal) ==

== ENCOUNTER 2024-05-22 09:44 | Emergency (ER) | payer MEDICARE, BC ==
[~2024-05-22] VITALS: Ht 185.4 cm; Wt 90.9 kg
[2024-05-22] MEDS ORDERED: VASC1CAP2 (10:02)
[2024-05-22] MEDS ORDERED: DIGO0.123 (10:02)
[2024-05-22] MEDS ORDERED: JARD1TAB (10:02)
[2024-05-22] MEDS: NS 500 ML IV ONE ×2 (10:25→10:55)
[2024-05-22 10:42] LABS: VENOUS BASE EXCESS -2.9 (-2.0-2.0); VENOUS HCO3 23.7 MMOL/L (23.0-27.0); VENOUS O2 SATURATION 55.7 % (60.0-80.0); VENOUS PARTIAL PRESSURE CO2 47.4 mmHg (38.0-50.0); VENOUS PARTIAL PRESSURE O2 33.1 mmHg (30.0-50.0); VENOUS PH 7.317 UNITS (7.330-7.430); VENOUS STANDARD HCO3 20.9 MMOL/L; VENOUS TOTAL CO2 25.2 MMOL/L (24.0-28.0)
[2024-05-22 10:43] LABS: BASO # 0.1 10^3/uL (0.0-0.2); BASO % 0.4 % (0.0-1.0); EOS % 0.2 % (0.0-3.0); HEMATOCRIT 51.7 % (42.0-52.0); HEMOGLOBIN 17.7 g/dl (13.5-17.5); LYMPH # 1.5 10^3/uL (1.5-5.0); LYMPH % 12.9 % (24.0-44.0); MEAN CORPUSCULAR HEMOGLOBIN 33.4 pg (27.0-33.0); MEAN CORPUSCULAR HGB CONC 34.2 g/dl (32.0-36.5); MEAN CORPUSCULAR VOLUME 97.5 fl (80.0-96.0); MONO # 0.8 10^3/uL (0.0-0.8); MONO % 7.1 % (2.0-8.0); NEUTROPHILS # 8.9 10^3/uL (1.5-8.5); PLATELET COUNT, AUTOMATED 191 10^3/uL (150-450); WHITE BLOOD COUNT 11.3 10^3/uL (4.0-10.0)
[2024-05-22 10:54] LABS: INR 1.19; PROTHROMBIN TIME 14.7 SECONDS (12.5-14.5)
[2024-05-22 11:16] LABS: CK-MB VALUE MASS 1.5 NG/ML (<3.6)
[2024-05-22 11:20] LABS: MB/CK RELATIVE INDEX 4.41 (< OR =4); THYROID STIMULATING HORMONE 1.602 uIU/ML (0.55-4.78)
[2024-05-22 12:02] LABS: ALBUMIN 4.1 G/DL (3.2-5.2); BILIRUBIN,DIRECT 0.5 MG/DL (<0.4); BILIRUBIN,TOTAL 1.6 MG/DL (0.3-1.2); CALCIUM LEVEL 9.9 MG/DL (8.3-10.6); CREATININE FOR GFR 1.75 MG/DL (0.70-1.30); GLOMERULAR FILTRATION RATE 39.4 (>35); POTASSIUM SERUM 4.3 MMOL/L (3.5-5.1); TOTAL PROTEIN 7.9 G/DL (5.7-8.2)
[2024-05-22 12:21] LABS: CK-MB VALUE MASS < 1.0 NG/ML (<3.6)
[2024-05-22 12:23] LABS: CPK CREATINE PHOSPHOKINASE 33 U/L (46-171); MB/CK RELATIVE INDEX 3.03 (< OR =4)
[2024-05-22] MEDS: NS 1,000 ML IV ONE (14:35)
[2024-05-22 15:08] VITALS: BP 133/66; TEMP 96.8; O2SAT 97
== END 2024-05-22 15:09 | disposition home or self-care (01) ==
LOC: M ED 09:44
DX: N17.9 Acute kidney failure, unspecified (principal); E86.0 Dehydration; N20.0 Calculus of kidney; K76.89 Other specified diseases of liver; D35.01 Benign neoplasm of right adrenal gland; K57.92 Diverticulitis of intestine, part unspecified, without perforation or abscess without bleeding; I10 Essential (primary) hypertension; Z86.79 Personal history of other diseases of the circulatory system; Z79.82 Long term (current) use of aspirin; Z79.4 Long term (current) use of insulin; Z79.899 Other long term (current) drug therapy

== ENCOUNTER → 2024-05-29 | Outpatient (CLI) | payer MEDICARE, BC ==
[~2024-05-29] MED LIST changes: +DIGO0.123; +JARD1TAB; +VASC1CAP2
[2024-06-02 17:21] LABS: METANEPHRINE PLASMA 95 pg/mL (<=57); NORMETANEPHRINE PLASMA 191 pg/mL (<=148); TOTAL FREE 286 pg/mL (<=205)
[2024-06-07 06:17] LABS: ALDOS/RENIN RATIO 3.4 Ratio (0.9-28.9); ALDOSTERONE LC 37 ng/dL; RENIN ACTIVITY 11.04 ng/mL/h (0.25-5.82)
== END ==
LOC: M LAB 10:21
PROVIDERS: ATTEND Internal Medicine Hematology
DX: E27.9 Disorder of adrenal gland, unspecified (principal)

== ENCOUNTER → 2024-05-30 | Outpatient (REF) | payer MEDICARE, BC | LOC: M LAB REF 06:00 | PROVIDERS: ATTEND Internal Medicine Hematology | DX: E27.9 Disorder of adrenal gland, unspecified (principal) ==

== ENCOUNTER → 2024-06-23 | Outpatient (CLI) | payer MEDICARE, BC ==
[2024-06-23 10:52] LABS: CREATININE FOR GFR 1.11 MG/DL (0.70-1.30); GLOMERULAR FILTRATION RATE > 60.0 (>35)
== END ==
LOC: M PLALAB 07:51
PROVIDERS: ATTEND Internal Medicine
DX: R06.02 Shortness of breath (principal)

== ENCOUNTER → 2024-07-24 | Outpatient (CLI) | payer MEDICARE, BC ==
[~2024-07-24] MED LIST changes: +CLOP75TA2 PO; +EPLE25TA15 PO; -EPLE25TA2 PO; +FURO40TA2 PO; -VASC1CAP2; +VASC1CAP2 PO
[2024-07-24 13:37] LABS: BASO # 0.1 10^3/uL (0.0-0.2); BASO % 0.7 % (0.0-1.0); EOS % 0.4 % (0.0-3.0); HEMATOCRIT 43.6 % (42.0-52.0); HEMOGLOBIN 14.4 g/dl (13.5-17.5); LYMPH # 1.2 10^3/uL (1.5-5.0); LYMPH % 16.3 % (24.0-44.0); MEAN CORPUSCULAR HEMOGLOBIN 33.3 pg (27.0-33.0); MEAN CORPUSCULAR VOLUME 100.7 fl (80.0-96.0); MONO # 0.8 10^3/uL (0.0-0.8); NEUTROPHILS # 5.2 10^3/uL (1.5-8.5); NEUTROPHILS % 71.3 % (36.0-66.0); PLATELET COUNT, AUTOMATED 102 10^3/uL (150-450); RED BLOOD COUNT 4.33 10^6/uL (4.30-6.10); WHITE BLOOD COUNT 7.2 10^3/uL (4.0-10.0)
[2024-07-24 13:46] LABS: ALBUMIN 3.8 G/DL (3.2-5.2); ALKALINE PHOSPHATASE 69 U/L (40-129); ALT/SGPT 17 U/L (7.0-40); AST/SGOT 25 U/L (<34); BLOOD UREA NITROGEN 24 MG/DL (9-23); CALCIUM LEVEL 9.5 MG/DL (8.3-10.6); CARBON DIOXIDE LEVEL 27 MMOL/L (20-31); CHLORIDE LEVEL 105 MMOL/L (98-107); CREATININE FOR GFR 1.21 MG/DL (0.70-1.30); GLOMERULAR FILTRATION RATE > 60.0 (>35); GLUCOSE, FASTING 122 MG/DL (74-106); POTASSIUM SERUM 4.9 MMOL/L (3.5-5.1); SODIUM LEVEL 142 MMOL/L (136-145); TOTAL PROTEIN 6.9 G/DL (5.7-8.2)
== END ==
LOC: M PLAIMG 10:24
PROVIDERS: ATTEND Internal Medicine Cardiovascular Disease
DX: I48.21 Permanent atrial fibrillation (principal); I44.30 Unspecified atrioventricular block; R06.01 Orthopnea; I50.32 Chronic diastolic (congestive) heart failure; I08.0 Rheumatic disorders of both mitral and aortic valves; I11.0 Hypertensive heart disease with heart failure; R91.8 Other nonspecific abnormal finding of lung field; Q25.46 Tortuous aortic arch

== ENCOUNTER → 2024-07-24 | Outpatient (CLI) | payer MEDICARE, BC ==
[~2024-07-24] MED LIST changes: -CLOP75TA2 PO; -FURO40TA2 PO; +VASC1CAP2; -VASC1CAP2 PO
== END ==
LOC: M EKG 11:48
PROVIDERS: ATTEND Internal Medicine Cardiovascular Disease
DX: I48.21 Permanent atrial fibrillation (principal); I44.30 Unspecified atrioventricular block

== ENCOUNTER → 2024-08-06 | Outpatient (REF) | payer MEDICARE, BC ==
[~2024-08-06] MED LIST changes: +CLOP75TA2 PO; +FURO40TA2 PO; -VASC1CAP2; +VASC1CAP2 PO
== END ==
LOC: M SFHCADAM 09:30
PROVIDERS: ATTEND Family Medicine
DX: R13.19 Other dysphagia (principal); E11.9 Type 2 diabetes mellitus without complications; E04.1 Nontoxic single thyroid nodule; I48.91 Unspecified atrial fibrillation; Z85.46 Personal history of malignant neoplasm of prostate; E78.2 Mixed hyperlipidemia; D64.9 Anemia, unspecified

== ENCOUNTER → 2024-08-07 | Outpatient (CLI) | payer MEDICARE, BC ==
[2024-08-07 16:32] LABS: HEMATOCRIT 43.2 % (42.0-52.0); HEMOGLOBIN 14.1 g/dl (13.5-17.5); MEAN CORPUSCULAR HGB CONC 32.6 g/dl (32.0-36.5); MEAN CORPUSCULAR VOLUME 104.1 fl (80.0-96.0); PLATELET COUNT, AUTOMATED 115 10^3/uL (150-450); RED BLOOD COUNT 4.15 10^6/uL (4.30-6.10); WHITE BLOOD COUNT 7.4 10^3/uL (4.0-10.0)
[2024-08-07 16:57] LABS: ALBUMIN 3.5 G/DL (3.2-5.2); ALKALINE PHOSPHATASE 74 U/L (40-129); ALT/SGPT 18 U/L (7.0-40); AST/SGOT 27 U/L (<34); BILIRUBIN,TOTAL 1.7 MG/DL (0.3-1.2); BLOOD UREA NITROGEN 29 MG/DL (9-23); CALCIUM LEVEL 9.2 MG/DL (8.3-10.6); CARBON DIOXIDE LEVEL 24 MMOL/L (20-31); CHLORIDE LEVEL 106 MMOL/L (98-107); CHOLESTEROL LEVEL 133 MG/DL (<200); CHOLESTEROL RISK RATIO 5.42 (<5); CREATININE FOR GFR 1.09 MG/DL (0.70-1.30); GLOMERULAR FILTRATION RATE > 60.0 (>35); GLUCOSE, FASTING 144 MG/DL (74-106); HDL CHOLESTEROL 24.5 MG/DL (>40); IRON (FE) 150 UG/DL (65-175); LDL CHOLESTEROL 78.1 MG/DL (<100); MAGNESIUM LEVEL 2.3 MG/DL (1.8-2.4); NON-HDL-C 108.5 MG/DL; POTASSIUM SERUM 4.4 MMOL/L (3.5-5.1); PROSTATIC SPECIFIC AG MONITOR 0.13 NG/ML (< 4.00); SODIUM LEVEL 142 MMOL/L (136-145); TRIGLYCERIDES LEVEL 152 MG/DL (<150)
[2024-08-07 16:57] LABS: HEMOGLOBIN A1c 5.6 % (4.0-6.0)
[2024-08-07 16:58] LABS: PERCENT SATURATION 51.4 % (19.7-50.0); TOTAL IRON BINDING CAPACITY 292 UG/DL (250-425)
[2024-08-07 17:00] LABS: FERRITIN 363.3 NG/ML (10.5-307.3); FREE T4 1.65 NG/DL (0.89-1.76); THYROID STIMULATING HORMONE 0.035 uIU/ML (0.55-4.78)
[2024-08-07 17:01] LABS: VITAMIN B12 LEVEL 443 PG/ML (211-911)
[2024-08-07 17:02] LABS: FOLATE 7.76 NG/ML (>5.4)
== END ==
LOC: M PLALAB 12:15
PROVIDERS: ATTEND Family Medicine
DX: R13.19 Other dysphagia (principal); E11.9 Type 2 diabetes mellitus without complications; E04.1 Nontoxic single thyroid nodule; I48.91 Unspecified atrial fibrillation; Z85.46 Personal history of malignant neoplasm of prostate; E78.2 Mixed hyperlipidemia; D64.9 Anemia, unspecified; I11.0 Hypertensive heart disease with heart failure; I50.32 Chronic diastolic (congestive) heart failure

== ENCOUNTER → 2024-08-07 | Outpatient (CLI) | payer MEDICARE, BC ==
[2024-08-07 16:55] LABS: ALBUMIN 3.7 G/DL (3.2-5.2); BLOOD UREA NITROGEN 28 MG/DL (9-23); CALCIUM LEVEL 9.3 MG/DL (8.3-10.6); CARBON DIOXIDE LEVEL 19 MMOL/L (20-31); CHLORIDE LEVEL 109 MMOL/L (98-107); GLOMERULAR FILTRATION RATE > 60.0 (>35); GLUCOSE, FASTING 147 MG/DL (74-106); POTASSIUM SERUM 4.6 MMOL/L (3.5-5.1); SODIUM LEVEL 141 MMOL/L (136-145)
== END ==
LOC: M PLALAB 12:11
PROVIDERS: ATTEND Internal Medicine Cardiovascular Disease
DX: I11.0 Hypertensive heart disease with heart failure (principal); I50.32 Chronic diastolic (congestive) heart failure

== ENCOUNTER 2024-08-15 08:00 | Day surgery (SDC) | payer MEDICARE, BC ==
[~2024-08-15] VITALS: Ht 185.4 cm; Wt 81.7 kg
[~2024-08-15 08:00] MED LIST changes: +LIDOCAINE 2% 100MG/5ML SDV (FOR ANES.) As Ordered ONE; +fentaNYL 100 MCG/2 ML INJECTION As Ordered ONE; +propofoL 200 MG/20 ML VIAL As Ordered ONE
[2024-08-15] MEDS ORDERED: ONDANSETRON 4MG 2ML VIAL As Ordered ONE (09:05)
[2024-08-15] MEDS ORDERED: PHENYLephrine 500MCG 5ML (100MCG/ML) SYRINGE As Ordered ONE (09:06)
[2024-08-15] MEDS ORDERED: ePHEDrine SULFATE 25 MG/5 ML(5MG/ML) SYRINGE As Ordered ONE (09:15)
[2024-08-15 09:16] VITALS: TEMP 99.4
[2024-08-15 09:37] VITALS: BP 144/79; O2SAT 97
== END 2024-08-15 09:48 | disposition home or self-care (01) ==
LOC: M OPP 08:00
PROVIDERS: ATTEND Surgery
DX: K44.9 Diaphragmatic hernia without obstruction or gangrene (principal); K29.70 Gastritis, unspecified, without bleeding; K29.80 Duodenitis without bleeding; I48.91 Unspecified atrial fibrillation; I50.9 Heart failure, unspecified; I11.0 Hypertensive heart disease with heart failure; E78.00 Pure hypercholesterolemia, unspecified; E11.9 Type 2 diabetes mellitus without complications; K21.9 Gastro-esophageal reflux disease without esophagitis; M19.90 Unspecified osteoarthritis, unspecified site; Z86.73 Personal history of transient ischemic attack (TIA), and cerebral infarction without residual deficits; Z85.46 Personal history of malignant neoplasm of prostate; Z87.891 Personal history of nicotine dependence; Z79.4 Long term (current) use of insulin; Z79.82 Long term (current) use of aspirin; Z79.84 Long term (current) use of oral hypoglycemic drugs; Z79.899 Other long term (current) drug therapy
CPT/HCPCS: 43235; J2371; J2405; J3010

== ENCOUNTER → 2024-08-21 | Outpatient (CLI) | payer MEDICARE, BC ==
[~2024-08-21] MED LIST changes: +E-Z-GAS II EFFERVESCENT PACKET (SODIUM BICARB./CITRIC ACID/SIMETHICONE) As Ordered ONE; +E-Z-HD 98% w/w 340GM SUSP BTL As Ordered ONE; +E-Z-PAQUE 96% w/w SUSP 176GM BTL As Ordered ONE; -LIDOCAINE 2% 100MG/5ML SDV (FOR ANES.) As Ordered ONE; -fentaNYL 100 MCG/2 ML INJECTION As Ordered ONE; -propofoL 200 MG/20 ML VIAL As Ordered ONE
== END ==
LOC: M RAD 10:58
PROVIDERS: ATTEND Family Medicine
DX: R13.19 Other dysphagia (principal)

== ENCOUNTER → 2024-08-29 | Outpatient (REF) | payer MEDICARE, BC ==
[~2024-08-29] MED LIST changes: -E-Z-GAS II EFFERVESCENT PACKET (SODIUM BICARB./CITRIC ACID/SIMETHICONE) As Ordered ONE; -E-Z-HD 98% w/w 340GM SUSP BTL As Ordered ONE; -E-Z-PAQUE 96% w/w SUSP 176GM BTL As Ordered ONE
== END ==
LOC: M LAB REF 15:42
PROVIDERS: ATTEND Surgery
DX: S91.134A Puncture wound without foreign body of right lesser toe(s) without damage to nail, initial encounter (principal)

== ENCOUNTER → 2024-12-16 | Outpatient (CLI) | payer MEDICARE, BC ==
[~2024-12-16] MED LIST changes: -FLOM0.4C39 PO; +TAMS-18 PO
== END ==
LOC: M PLALAB 14:23
PROVIDERS: ATTEND Urology
DX: R97.20 Elevated prostate specific antigen [PSA] (principal)

== ENCOUNTER → 2024-12-17 | Outpatient (CLI) | payer MEDICARE, BC ==
[2024-12-17 18:21] LABS: BASO % 0.4 % (0.0-1.0); EOS # 0.1 10^3/uL (0.0-0.5); EOS % 0.7 % (0.0-3.0); HEMATOCRIT 37.4 % (42.0-52.0); HEMOGLOBIN 12.4 g/dl (13.5-17.5); LYMPH # 1.6 10^3/uL (1.5-5.0); LYMPH % 21.2 % (24.0-44.0); MEAN CORPUSCULAR HEMOGLOBIN 33.2 pg (27.0-33.0); MEAN CORPUSCULAR HGB CONC 33.2 g/dl (32.0-36.5); MEAN CORPUSCULAR VOLUME 100.3 fl (80.0-96.0); MONO # 0.9 10^3/uL (0.0-0.8); MONO % 11.5 % (2.0-8.0); NEUTROPHILS # 4.9 10^3/uL (1.5-8.5); NEUTROPHILS % 65.8 % (36.0-66.0); PLATELET COUNT, AUTOMATED 129 10^3/uL (150-450); RED BLOOD COUNT 3.73 10^6/uL (4.30-6.10); WHITE BLOOD COUNT 7.4 10^3/uL (4.0-10.0)
[2024-12-17 18:45] LABS: ALBUMIN 3.7 G/DL (3.2-5.2); BILIRUBIN,TOTAL 1.2 MG/DL (0.3-1.2); CALCIUM LEVEL 8.6 MG/DL (8.3-10.6); CREATININE FOR GFR 1.4 MG/DL (0.70-1.30); MAGNESIUM LEVEL 2.1 MG/DL (1.8-2.4); POTASSIUM SERUM 4.9 MMOL/L (3.5-5.1); TOTAL PROTEIN 6.8 G/DL (5.7-8.2)
[2024-12-17 18:48] LABS: FREE T4 1.33 NG/DL (0.89-1.76)
[2024-12-17 18:49] LABS: THYROID STIMULATING HORMONE 1.099 uIU/ML (0.55-4.78)
== END ==
LOC: M PLALAB 15:28
PROVIDERS: ATTEND Physician Assistant
DX: I48.21 Permanent atrial fibrillation (principal); I50.32 Chronic diastolic (congestive) heart failure

== ENCOUNTER → 2025-05-11 | Outpatient (CLI) | payer MEDICARE, BC ==
[2025-05-11 18:41] LABS: C REACTIVE PROTEIN QUANTITATIV 1.49 MG/DL (<1.0)
[2025-05-11 18:43] LABS: FREE T4 1.55 NG/DL (0.89-1.76)
[2025-05-11 18:44] LABS: ALT/SGPT 16.0 U/L (7.0-40); AST/SGOT 28.0 U/L (<34); CALCIUM LEVEL 8.7 MG/DL (8.3-10.6); CARBON DIOXIDE LEVEL 25.0 MMOL/L (20-31); CHLORIDE LEVEL 105.0 MMOL/L (98-107); CREATININE FOR GFR 1.79 MG/DL (0.70-1.30); GLOMERULAR FILTRATION RATE 35.8 (>35); MAGNESIUM LEVEL 2.2 MG/DL (1.8-2.4); POTASSIUM SERUM 4.5 MMOL/L (3.5-5.1); SODIUM LEVEL 137.0 MMOL/L (136-145)
[2025-05-11 18:50] LABS: BASO # 0.0 10^3/uL (0.0-0.2); BASO % 0.5 % (0.0-1.0); EOS # 0.0 10^3/uL (0.0-0.5); EOS % 0.4 % (0.0-3.0); LYMPH # 1.3 10^3/uL (1.5-5.0); LYMPH % 16.4 % (24.0-44.0); MONO # 0.9 10^3/uL (0.0-0.8); MONO % 10.5 % (2.0-8.0); NEUTROPHILS # 5.8 10^3/uL (1.5-8.5); NEUTROPHILS % 71.8 % (36.0-66.0); PLATELET COUNT, AUTOMATED 126 10^3/uL (150-450)
[2025-05-11 19:05] LABS: ERYTHROCYTE SEDIMENTATION RATE 62 mm/hr (0-20)
== END ==
LOC: M WUC 13:17
PROVIDERS: ATTEND Physician Assistant
DX: I50.32 Chronic diastolic (congestive) heart failure (principal); I48.21 Permanent atrial fibrillation

== ENCOUNTER 2025-05-12 14:58 | Day surgery (SDC) | payer MEDICARE, BC ==
[~2025-05-12] VITALS: Ht 185.4 cm; Wt 87.5 kg
[2025-05-12] MEDS: GENTAMICIN SULF 80 MG/2 ML VIAL As Ordered ONE (16:34)
[2025-05-12] MEDS ORDERED: LIDOCAINE 5% OINT 30 GM TUBE As Ordered ONE (17:17)
[2025-05-12] MEDS: ROPIvacaine 0.5% 30ML VIAL As Ordered ONE (17:55)
[2025-05-12] MEDS ORDERED: ONDANSETRON 4MG 2ML VIAL IV PRN (18:25)
[2025-05-12] MEDS ORDERED: MORPHINE 4 MG/ML 1 ML VIAL IV PRN (18:25)
[2025-05-12] MEDS ORDERED: LR 1,000 ML IV SCH (18:25)
[2025-05-12 19:20] VITALS: BP 145/68; TEMP 97.5; O2SAT 97
== END 2025-05-12 19:25 | disposition home or self-care (01) ==
LOC: M SDC 14:58
PROVIDERS: ATTEND Podiatrist
DX: M86.171 Other acute osteomyelitis, right ankle and foot (principal); L02.611 Cutaneous abscess of right foot; B35.1 Tinea unguium; E11.9 Type 2 diabetes mellitus without complications; I11.0 Hypertensive heart disease with heart failure; I50.9 Heart failure, unspecified; E78.5 Hyperlipidemia, unspecified; I69.998 Other sequelae following unspecified cerebrovascular disease; Z79.82 Long term (current) use of aspirin; Z79.02 Long term (current) use of antithrombotics/antiplatelets; Z79.4 Long term (current) use of insulin; Z79.899 Other long term (current) drug therapy; Z85.46 Personal history of malignant neoplasm of prostate
CPT/HCPCS: 28825; 73630; 87070; 87075; 87077; 87186; 88305; 88311; 93005; J1580; J2795; J3010

== ENCOUNTER → 2025-05-20 | Outpatient (CLI) | payer MEDICARE, BC ==
[2025-05-20 18:21] LABS: LDH LACTATE DEHYDROGENASE 440.0 U/L (120-246)
[2025-05-20 18:22] LABS: IRON (FE) 112.0 UG/DL (65-175); PERCENT SATURATION 40.7 % (19.7-50.0)
[2025-05-20 18:29] LABS: VITAMIN B12 LEVEL 472.0 PG/ML (211-911)
== END ==
LOC: M PLALAB 16:48
PROVIDERS: ATTEND Physician Assistant
DX: D64.9 Anemia, unspecified (principal); R79.82 Elevated C-reactive protein (CRP); Z95.2 Presence of prosthetic heart valve